=== PATIENT | female | born 1965 ===

== ENCOUNTER 2020-01-13 15:08 | Outpatient (CLI) | payer OTHER, SELFPAY ==
--- NOTE | 2020-01-13 15:09 | MM_ITS ---
WS: [id number] BILATERAL DIGITAL SCREENING MAMMOGRAPHY WITH CAD CLINICAL INFORMATION: SCREENING HISTORY: Screening mammogram. No current complaints. COMPARISON: July 30, 2018 TECHNIQUE: Bilateral CC and MLO views. FINDINGS: The breasts are composed of heterogeneous fibroglandular density tissue, which can limit the detectio n of small underlying mass lesions. Lucent centered calcifications. No suspicious mass, asymmetry, ca lcifications, or architectural distortion. No evidence of malignancy. MM/[place] [id number] IMPRESSION: BI-RADS: 2-Benign FOLLOW UP: 1 Year Follow-up Recommend return to annual screening mammography.
== END 2020-01-13 15:09 | disposition home or self-care (01) ==
LOC: RADSHAW 15:08
PROVIDERS: Family Provider Nurse Practitioner Women's Health; Visit Provider Nurse Practitioner Women's Health
DX: Z12.31 Encounter for screening mammogram for malignant neoplasm of breast (principal)
CPT/HCPCS: 77067

== ENCOUNTER → 2020-08-09 09:10 | Outpatient (BNVA) | payer OTHER, SELFPAY | PROVIDERS: Family Provider Nurse Practitioner Women's Health; Visit Provider Nurse Practitioner Women's Health | DX: C18.1 Malignant neoplasm of appendix (principal) | CPT/HCPCS: 80053; 82378; 85007; 85027; 86301; 86304 ==

== ENCOUNTER 2020-08-15 09:09 | Outpatient (CLI) | payer OTHER, SELFPAY ==
--- NOTE | 2020-08-15 10:30 | CT_ITS ---
WS: [id number] CT ABDOMEN AND PELVIS WITH CONTRAST HISTORY: adenocarcinoma of appendix TECHNIQUE: Imaging performed of the abdomen and pelvis with IV contrast. Single phase imaging of the abdomen. Coronal and sagittal reformats are submitted. All CT scans at [facility] use at least one of these dose optimization techniques: automated exposure control; mA and/or kV adjustment per patient size (includes targeted exams where dose is matched to clinical indication); or iterativ e reconstruction. IV CONTRAST: Omnipaque 300; 95 mL IV. Oral contrast: Yes. DLP: 1088.69 mGycm COMPARISON: 01/25/2019 and 08/03/2017 Lower thorax: Lung bases are clear. Heart is normal size. No hiatal hernia. Liver/biliary system: Normal size with no intrahepatic dilatation. Gallbladder: Status post cholecystectomy. Pancreas: Normal. Spleen: Prior splenectomy. Stable splenule LEFT upper abdomen. Adrenal glands: Normal. Right kidney: Normal. Left kidney: Normal. Aorta: Mild atherosclerosis with no aneurysm. Lymphadenopathy: Small benign-appearing mesenteric and retroperitoneal lymph nodes. No increase in si ze. Free fluid: None. GI tract: Prior appendectomy. No GI tract obstruction. No recurrent mass or adenopathy in the RIGHT l ower quadrant. Mild wall thickening of the sigmoid colon is similar to prior studies. Abdominal wall: Fat-containing umbilical hernia. Pelvis: Prior hysterectomy. Urinary bladder is well distended. There is mild stranding in the perirec pat soft tissue similar to the prior studies. Bones: Increase in lumbar lordosis. Mild spondylitic changes throughout the lumbar spine. CT/CT abdomen pelvis w con* [id number] IMPRESSION: 1. No ascites or metastatic adenopathy within the abdomen or pelvis. 2. Prior cholecystectomy, splenectomy and appendectomy. 3. Stable perirectal soft tissue stranding.
[2020-08-15] MEDS: iohexol 300 mg/mL 100 mL Btl IV (11:02)
[2020-08-15] MEDS: iohexol 300 mg/mL 50 mL Btl IV (11:02)
== END 2020-08-15 09:10 | disposition home or self-care (01) ==
LOC: RADWPI 09:14
PROVIDERS: Family Provider Nurse Practitioner Women's Health; PCP Nurse Practitioner Women's Health; Visit Provider Nurse Practitioner Women's Health
DX: C18.1 Malignant neoplasm of appendix (principal)
CPT/HCPCS: 74177; Q9967

== ENCOUNTER 2021-04-04 15:26 | Outpatient (CLI) | payer OTHER, SELFPAY ==
--- NOTE | 2021-04-04 15:31 | MM_ITS ---
WS: [id number] BILATERAL SCREENING DIGITAL MAMMOGRAM WITH CAD HISTORY: SCREENING COMPARISON: 01/13/2020 and 07/30/2018 Bilateral CC and MLO views submitted. Computer aided detection analyzed. Breast composition: There are scattered areas of fibroglandular density. No suspicious masses, microc alcifications or architectural distortion. Benign calcifications in each breast. MM/[place] [id number] IMPRESSION: BI-RADS: 2-Benign FOLLOW UP: 1 Year Follow-up
== END 2021-04-04 15:27 | disposition home or self-care (01) ==
LOC: RADSHAW 15:30
PROVIDERS: Family Provider Nurse Practitioner Women's Health; PCP Nurse Practitioner Women's Health; Visit Provider Nurse Practitioner Women's Health
DX: Z12.31 Encounter for screening mammogram for malignant neoplasm of breast (principal)
CPT/HCPCS: 77067

== ENCOUNTER 2021-05-14 10:05 | Outpatient (CLI) | payer SELFPAY ==
[2021-05-14 10:23] LABS: HF Add Manual Diff No
[2021-05-14 10:25] LABS: Basophils # 0.1 10^3/uL (0.0-0.1); Basophils % 0.9 %; Eosinophils # 0.2 10^3/uL (0.0-0.8); Eosinophils % 2.3 %; Hematocrit 38.5 % (37.0-47.0); Hemoglobin 12.6 g/dL (11.5-15.3); Lymphocytes # 2.3 10^3/uL (0.8-4.8); Lymphocytes % 35.5 %; Mean Corpuscular HGB Conc 32.7 g/dL (30.0-36.0); Mean Corpuscular Hemoglobin 31.6 pg (28.0-34.0); Mean Corpuscular Volume 96.5 fL (81-99); Mean Platelet Volume 9.4 fL (7.4-10.4); Monocytes # 0.6 10^3/uL (0.2-0.9); Monocytes % 9.5 %; Neutrophils # 3.33 10^3/uL (1.8-7.7); Neutrophils % 51.6 %; Nucleated Red Blood Cells % 0 %; Platelet Count 347 10^3/cmm (130-400); Red Blood Count 3.99 10^6/uL (4.1-5.3); Red Cell Distribution Width 14.4 % (12.1-15.1); White Blood Count 6.5 10^3/uL (4.0-10.0)
[2021-05-14 11:05] LABS: 25 Hydroxy Vitamin D 29 ng/mL (30-100); Alanine Aminotransferase 12 U/L (0-33); Alkaline Phosphatase 60 IU/L (35-105); Anion Gap 12.4 (5-19); Aspartate Amino Transferase 14 U/L (0-32); Blood Urea Nitrogen 17 mg/dL (6-20); Carbon Dioxide 27 mmol/L (22-29); Chloride 106 mmol/L (98-107); Chol HDL Ratio 2.91 mg/dL (0.0-4.40); Cholesterol 166 mg/dL (0-200); Globulin 2.6 g/dL (1.3-4.6); Glomerular Filtration Rate 86.6 mL/min (90-130); Glucose 91 mg/dL (65-115); HDL Cholesterol 57 mg/dL (60-100); LDL Cholesterol Calculated 94 mg/dL (50-129); LDL HDL Ratio 1.65 RATIO (0.00-3.22); Osmolality Calculated 293 mOsm/kg (285-295); Potassium 4.4 mmol/L (3.5-5.1); Sodium 141 mmol/L (136-145); Thyroid Stimulating Hormone 1.71 uIU/mL (0.27-4.20); Total Bilirubin 0.4 mg/dL (0.15-1.2); Total Protein 6.6 g/dL (6.6-8.7); Triglycerides 75 mg/dL (0-150)
[2021-05-14 11:59] LABS: Estmated Average Glucose 100; Hemoglobin A1C 5.1 % (4.0-6.0)
== END 2021-05-14 10:06 | disposition home or self-care (01) ==
PROVIDERS: Family Provider Nurse Practitioner Women's Health; PCP Nurse Practitioner Women's Health; Visit Provider Dermatology
DX: Z13.9 Encounter for screening, unspecified (principal)
CPT/HCPCS: 36415

== ENCOUNTER → 2021-12-10 08:00 | Outpatient (BNVA) | payer OTHER, SELFPAY | PROVIDERS: Family Provider Nurse Practitioner Women's Health; PCP Nurse Practitioner Women's Health; Visit Provider Obstetrics & Gynecology | DX: Z11.52 Encounter for screening for COVID-19 (principal) | CPT/HCPCS: 87635 ==

== ENCOUNTER 2021-12-12 08:45 | Outpatient (CLI) | payer OTHER, SELFPAY ==
[2021-12-12 07:55] VITALS: BP 123/78; PULSE 69; RESP 18; TEMP 36.5; O2SAT 99
[2021-12-12 09:08] VITALS: BMI 24.0
[2021-12-12 09:19] VITALS: BP 124/76; PULSE 58; RESP 16; TEMP 36.5; O2SAT 99
[2021-12-12 10:20] VITALS: BP 112/74; PULSE 62; RESP 14; TEMP 36.5; O2SAT 98
== END 2021-12-12 08:46 | disposition home or self-care (01) ==
LOC: OPS 14:58
PROVIDERS: PCP Nurse Practitioner Women's Health; Visit Provider Family Medicine
DX: U07.1 COVID-19 (principal)
CPT/HCPCS: 96365

== ENCOUNTER 2022-07-30 08:53 | Outpatient (CLI) | payer OTHER, SELFPAY ==
--- NOTE | 2022-07-30 09:04 | MM_ITS ---
WS: [id number] BILATERAL SCREENING DIGITAL TOMOSYNTHESIS MAMMOGRAM WITH CAD HISTORY: SCREENING COMPARISON: 04/04/2021 and 01/13/2020 Bilateral CC and MLO views with tomosynthesis and synthetic mammography submitted. Computer aided det ection analyzed. Breast composition: There are scattered areas of fibroglandular density. No suspicious masses, microc alcifications or architectural distortion. MM/[place] [id number] IMPRESSION: BI-RADS: 1-Negative FOLLOW UP: 1 Year Follow-up
== END 2022-07-30 08:54 | disposition home or self-care (01) ==
PROVIDERS: PCP Nurse Practitioner Women's Health; Visit Provider Nurse Practitioner Women's Health
DX: Z12.31 Encounter for screening mammogram for malignant neoplasm of breast (principal)
CPT/HCPCS: 77063; 77067

== ENCOUNTER 2022-10-09 07:50 | Outpatient (CLI) | payer OTHER, SELFPAY ==
--- NOTE | 2022-10-09 08:32 | ECG_ITS ---
[facility] Test Date: 2022-10-09 Pat Name: Krystle Smith Department: Room: Gender: Female State Manager: : 1965 Requested By: Mayda Carmen Order Number: [id number] Lenka MD: Julian Ba M.D. Measurements Intervals Laura Rate: 64 P: 21 AZ: 157 QRS: 24 QRSD: 78 T: 36 QT: 402 QTc: 417 Interpretive Statements SINUS RHYTHM WITH SINUS ARRHYTHMIA POSSIBLE LEFT ATRIAL ENLARGEMENT [-0.1mV P-WAVE IN V1/V2] LOW QRS VOLTAGE IN PRECORDIAL LEADS [QRS DEFLECTION < 1.0 mV IN CHEST LEADS] No previous ECG available for comparison Electronically Signed On 10-10-2022 6:33:10 MEDICAL DOCTOR MD by Julian Ba M.D. [id number]
== END 2022-10-09 07:51 | disposition home or self-care (01) ==
PROVIDERS: PCP Nurse Practitioner Women's Health; Visit Provider Nurse Practitioner Women's Health
DX: R07.9 Chest pain, unspecified (principal)
CPT/HCPCS: 93005

== ENCOUNTER → 2023-01-01 11:14 | Outpatient (BNVA) | payer SELFPAY | PROVIDERS: PCP Nurse Practitioner Women's Health; Visit Provider Nurse Practitioner Women's Health | DX: Z13.6 Encounter for screening for cardiovascular disorders (principal) | CPT/HCPCS: 80061; 82947; 83036 ==

== ENCOUNTER 2023-09-02 09:39 | Outpatient (CLI) | payer OTHER, SELFPAY ==
--- NOTE | 2023-09-02 09:42 | MM_ITS ---
WS: [id number] BILATERAL SCREENING DIGITAL TOMOSYNTHESIS MAMMOGRAM WITH CAD HISTORY: SCREENING COMPARISON: 07/30/2022, 01/13/2020 Bilateral CC and MLO views with tomosynthesis and synthetic mammography submitted. Computer aided det ection analyzed. Breast composition: The breasts are heterogeneously dense, which may obscure small masses. No suspici ous masses, microcalcifications or architectural distortion. Intramammary lymph node in the inferior lateral LEFT breast. Benign calcifications in the anterior RIGHT breast. IMPRESSION: MM/[place] [id number] BI-RADS: 2-Benign FOLLOW UP: 1 Year Follow-up
== END 2023-09-02 09:40 | disposition home or self-care (01) ==
PROVIDERS: PCP Nurse Practitioner Women's Health; Visit Provider Nurse Practitioner Women's Health
DX: Z12.31 Encounter for screening mammogram for malignant neoplasm of breast (principal)
CPT/HCPCS: 77063; 77067

== ENCOUNTER → 2024-02-16 09:22 | Outpatient (BNVA) | payer OTHER, SELFPAY | PROVIDERS: PCP Nurse Practitioner Women's Health; Visit Provider Nurse Practitioner Women's Health | DX: Z01.419 Encounter for gynecological examination (general) (routine) without abnormal findings (principal); Z78.0 Asymptomatic menopausal state; Z13.820 Encounter for screening for osteoporosis; L65.9 Nonscarring hair loss, unspecified; Z13.228 Encounter for screening for other metabolic disorders; C18.1 Malignant neoplasm of appendix; Z13.1 Encounter for screening for diabetes mellitus; N76.3 Subacute and chronic vulvitis; Z79.890 Hormone replacement therapy | CPT/HCPCS: 80053; 82378; 83036; 84439; 84443; 86301; 86304 ==

== ENCOUNTER 2024-09-02 13:30 | Outpatient (CLI) | payer OTHER, SELFPAY ==
--- NOTE | 2024-09-02 13:30 | XR_ITS ---
WS: [id number] SCREENING DEXA SCAN Varthana CLINICAL INFORMATION: Z78.0 - Asymptomatic menopausal state COMPARISON: None. FINDINGS: The L1-L4 bone mineral density measures 1.326 g/cm2. This corresponds to a T score score of 1.2 and Z score of 2.3. Left femoral neck bone mineral density measures 1.043 g/cm2. This corresponds to a T score of 0.3 and Z score of 1.1. Right femoral neck bone mineral density measures 1.068 g/cm2. This corresponds to a T score 0.5of and Z score of 1.3. Mean femoral neck bone mineral density measures 1.056 g/cm2. This corresponds to a T score of 0.4 and Z score of 1.2. XR/XR DEXA axial skeleton* [id number] IMPRESSION: Normal bone mineralization. Patient's FRAX calculated 10 year probability for major osteoporotic fracture i s 3.5% and osteoporotic hip fracture is 0.1%.
== END 2024-09-02 13:33 | disposition home or self-care (01) ==
PROVIDERS: PCP Nurse Practitioner Women's Health; Visit Provider Nurse Practitioner Women's Health
DX: Z13.820 Encounter for screening for osteoporosis (principal); Z78.0 Asymptomatic menopausal state
CPT/HCPCS: 77080

== ENCOUNTER 2024-10-14 11:03 | Outpatient (CLI) | payer OTHER, SELFPAY ==
--- NOTE | 2024-10-14 11:08 | MM_ITS ---
WS: [id number] BILATERAL SCREENING DIGITAL TOMOSYNTHESIS MAMMOGRAM WITH CAD HISTORY: SCREENING COMPARISON: 09/02/2023, 07/30/2022 and 01/13/2020 Bilateral CC and MLO views with tomosynthesis and synthetic mammography submitted. Computer aided det ection analyzed. Breast composition: There are scattered areas of fibroglandular density. No suspicious masses, microc alcifications or architectural distortion. Long-term stability of a 10 x 8 mm partially obscured mass in the central LEFT breast. There are a few scattered bilateral benign calcifications. MM/MM [facility] tomosynthesis [id number] IMPRESSION: BI-RADS: 2 - Benign. FOLLOW UP: 1 Year Follow-up
== END 2024-10-14 11:04 | disposition home or self-care (01) ==
LOC: RAD 11:03
PROVIDERS: PCP Nurse Practitioner Women's Health; Visit Provider Nurse Practitioner Women's Health
DX: Z12.31 Encounter for screening mammogram for malignant neoplasm of breast (principal); R92.323 Mammographic fibroglandular density, bilateral breasts; N63.42 Unspecified lump in left breast, subareolar
CPT/HCPCS: 77063; 77067

== ENCOUNTER → 2025-01-18 10:07 | Outpatient (BNVA) | payer OTHER, SELFPAY | PROVIDERS: PCP Nurse Practitioner Women's Health; Visit Provider Nurse Practitioner Women's Health | DX: Z13.6 Encounter for screening for cardiovascular disorders (principal) | CPT/HCPCS: 80061; 82947; 83036 ==